=== PATIENT | male | born 1975 | race African-American/Black ===

== ENCOUNTER 2017-12-08 08:28 | Emergency (ER) | payer MEDICAID ==
[~2017-12-08] VITALS: Ht 185.4 cm; Wt 122.0 kg
[2017-12-08] MEDS ORDERED: CEFTRIAXONE SODIUM 1 G/VIAL IV ONE (09:30)
[2017-12-08] MEDS ORDERED: CEFTRIAXONE 1 G PREMIX 50 ML IV ONE (10:00)
[2017-12-08 10:06] LABS: BASOPHILS % 0.6 % (0.0-2.0); EOSINOPHILS % 3.2 % (0.0-5.0); HEMATOCRIT. 43.7 % (42.0-52.0); HEMOGLOBIN. 14.7 g/dL (14.0-18.0); LYMPHOCYTES % 31.3 % (20.0-50.0); MEAN CORPUSCULAR HEMOGLOBIN 27.7 pg (28.0-32.0); MEAN PLATELET VOLUME 8.5 fl (7.4-10.4); MONOCYTES % 8.2 % (2.0-8.0); NEUTROPHILS % 56.7 % (40.0-76.0); PLATELET 228 x1000/uL (130-400); RED BLOOD CELL COUNT 5.32 mill/uL (4.7-6.1); RED CELL DISTRIBUTION WIDTH 13.2 % (11.6-14.6)
[2017-12-08 10:32] LABS: CHLORIDE 110 mEq/L (98-107)
[2017-12-08 11:00] VITALS: BP 121/76
[2017-12-08] MEDS ORDERED: BACITRACIN ZINC OINT UDPKT TOP ONE (12:30)
== END 2017-12-08 12:47 | disposition home or self-care (01) ==
LOC: ER 09:54
DX: L02.416 Cutaneous abscess of left lower limb (principal); L03.116 Cellulitis of left lower limb; R60.0 Localized edema; R03.0 Elevated blood-pressure reading, without diagnosis of hypertension; Z72.0 Tobacco use
CPT/HCPCS: 36415; 80048; 85025; 87040; 87070; 87077; 87205; 93971; 96365; 99285; J0696

== ENCOUNTER 2020-05-31 16:35 | Emergency (ER) | payer MEDICAID ==
[~2020-05-31] VITALS: Ht 185.4 cm; Wt 127.0 kg
[2020-05-31 16:41] VITALS: BP 145/99
[2020-05-31] MEDS ORDERED: AMOX-424 MT (18:27)
== END 2020-05-31 18:58 | disposition home or self-care (01) ==
LOC: ER 16:35
DX: K11.20 Sialoadenitis, unspecified (principal); J45.909 Unspecified asthma, uncomplicated; F12.10 Cannabis abuse, uncomplicated; Z98.890 Other specified postprocedural states; Z79.899 Other long term (current) drug therapy
CPT/HCPCS: 81025; 99283

== ENCOUNTER 2021-01-12 21:27 | Emergency (ER) | payer MEDICAID ==
[~2021-01-12] VITALS: Ht 185.4 cm; Wt 125.0 kg
[~2021-01-12 21:27] MED LIST: AMOX-424 MT
[2021-01-12] MEDS ORDERED: VISCOUS LIDOCAINE 2% 15 ML UDC PO STA (23:15)
[2021-01-12] MEDS ORDERED: MAGNESIUM/ALUMINUM HYDROXIDE/SIMETHICONE 30ML UDC PO STA (23:15)
[2021-01-12] MEDS ORDERED: IBUPROFEN 600MG TABLET PO STA (23:15)
[2021-01-12 23:26] VITALS: BP 153/92
[2021-01-12 23:48] LABS: CHLORIDE 110 mEq/L (98-107)
[2021-01-12 23:51] LABS: BASOPHILS % 0.4 % (0.0-2.0); EOSINOPHILS % 3.5 % (0.0-5.0); HEMATOCRIT. 47.8 % (42.0-52.0); HEMOGLOBIN. 15.8 g/dL (14.0-18.0); LYMPHOCYTES % 36.7 % (20.0-50.0); MEAN PLATELET VOLUME 8.8 fl (7.4-10.4); MONOCYTES % 8.1 % (2.0-8.0); NEUTROPHILS % 51.3 % (40.0-76.0); PLATELET 198 x1000/uL (130-400); RED BLOOD CELL COUNT 5.83 mill/uL (4.7-6.1); RED CELL DISTRIBUTION WIDTH 13.8 % (11.6-14.6)
[2021-01-12 23:55] LABS: ETHANOL BLOOD < 10 mg/dL
== END 2021-01-13 01:13 | disposition home or self-care (01) ==
LOC: ER 21:27
DX: R07.89 Other chest pain (principal); R10.11 Right upper quadrant pain; K76.0 Fatty (change of) liver, not elsewhere classified; I45.10 Unspecified right bundle-branch block; R03.0 Elevated blood-pressure reading, without diagnosis of hypertension
CPT/HCPCS: 36415; 76700; 80053; 80320; 84484; 85025; 93005; 99285; G0480

== ENCOUNTER 2021-01-16 01:06 | Emergency (ER) | payer MEDICAID ==
[~2021-01-16] VITALS: Ht 185.4 cm; Wt 125.0 kg
[2021-01-16] MEDS ORDERED: HYDROCODONE/ACETAMINOPHEN 5/325MG TABLET PO STA (02:03)
[2021-01-16] MEDS ORDERED: MAGNESIUM/ALUMINUM HYDROXIDE/SIMETHICONE 30ML UDC PO STA (02:03)
[2021-01-16 02:59] VITALS: BP 150/100
[2021-01-16 03:35] LABS: BASOPHILS % 0.8 % (0.0-2.0); EOSINOPHILS % 3.7 % (0.0-5.0); HEMATOCRIT. 44.8 % (42.0-52.0); HEMOGLOBIN. 14.7 g/dL (14.0-18.0); LYMPHOCYTES % 32.8 % (20.0-50.0); MEAN CORPUSCULAR HEMOGLOBIN 26.8 pg (28.0-32.0); MEAN CORPUSCULAR VOLUME 81.8 fL (80.0-94.0); MEAN PLATELET VOLUME 8.7 fl (7.4-10.4); MONOCYTES % 7.5 % (2.0-8.0); NEUTROPHILS % 55.2 % (40.0-76.0); PLATELET 198 x1000/uL (130-400); RED BLOOD CELL COUNT 5.47 mill/uL (4.7-6.1); RED CELL DISTRIBUTION WIDTH 13.9 % (11.6-14.6)
[2021-01-16 03:57] LABS: CHLORIDE 108 mEq/L (98-107)
[2021-01-16 04:02] LABS: ETHANOL BLOOD < 10 mg/dL
[2021-01-16 04:33] LABS: *AMPHETAMINES SCREEN URINE NEGATIVE (NEGATIVE); *BARBITURATES SCREEN URINE NEGATIVE (NEGATIVE); *BENZODIAZEPINES SCREEN URINE NEGATIVE (NEGATIVE)
[2021-01-16 04:34] LABS: *COCAINE SCREEN URINE NEGATIVE (NEGATIVE); CANNABINOID URINE SCREEN PRESUMTIVE POSITIVE (NEGATIVE); METHADONE URINE SCREEN NEGATIVE (NEGATIVE); OPIATES URINE SCREEN NEGATIVE (NEGATIVE); PHENCYCLIDINE URINE SCREEN NEGATIVE (NEGATIVE)
== END 2021-01-16 05:44 | disposition home or self-care (01) ==
LOC: ER 01:06
DX: K76.0 Fatty (change of) liver, not elsewhere classified (principal); J45.909 Unspecified asthma, uncomplicated; F12.10 Cannabis abuse, uncomplicated; Z20.822 Contact with and (suspected) exposure to COVID-19
CPT/HCPCS: 36415; 76705; 80053; 80305; 80320; 85025; 87426; 93005; 99285; G0480

== ENCOUNTER 2021-02-03 15:22 | Emergency (ER) | payer MEDICAID ==
[~2021-02-03] VITALS: Ht 185.4 cm; Wt 137.0 kg
[2021-02-03 15:39] VITALS: BP 160/102
[2021-02-03] MEDS ORDERED: ALBU2.5V13 NEB (15:46)
[2021-02-03] MEDS ORDERED: P20 MT (15:46)
== END 2021-02-03 16:35 | disposition home or self-care (01) ==
LOC: ER 15:22
DX: J45.909 Unspecified asthma, uncomplicated (principal); Z20.822 Contact with and (suspected) exposure to COVID-19; K76.9 Liver disease, unspecified; F12.10 Cannabis abuse, uncomplicated; Z79.899 Other long term (current) drug therapy; Z98.890 Other specified postprocedural states
CPT/HCPCS: 99281

== ENCOUNTER 2021-02-12 23:34 | Emergency (ER) | payer MEDICAID ==
[~2021-02-12] VITALS: Ht 185.4 cm; Wt 137.0 kg
[~2021-02-12 23:34] MED LIST changes: +ALBU2.5V13 NEB; +P20 MT
[2021-02-13 00:18] VITALS: BP 128/89
== END 2021-02-13 05:52 | disposition left against medical advice (07) ==
LOC: ER 23:34
DX: R10.9 Unspecified abdominal pain (principal); Z53.21 Procedure and treatment not carried out due to patient leaving prior to being seen by health care provider
CPT/HCPCS: 93005; 99281

== ENCOUNTER 2021-03-30 02:03 | Emergency (ER) | payer MEDICAID | END 2021-03-30 02:59 | disposition left against medical advice (07) | LOC: ER 02:03 | DX: Z53.21 Procedure and treatment not carried out due to patient leaving prior to being seen by health care provider (principal) ==

== ENCOUNTER → 2022-09-28 | Emergency (ER) | payer MEDICAID | LOC: ER 03:11 | DX: Z53.21 Procedure and treatment not carried out due to patient leaving prior to being seen by health care provider (principal) | CPT/HCPCS: 99281 ==

== ENCOUNTER 2023-06-11 04:19 | Emergency (ER) | payer MEDICAID ==
[~2023-06-11] VITALS: Ht 185.4 cm; Wt 136.0 kg
[2023-06-11 04:27] VITALS: O2SAT 97
[2023-06-11] MEDS ORDERED: IBUP-2028 PO (05:58)
[2023-06-11] MEDS ORDERED: HYDR453.3 TP (05:58)
[2023-06-11] MEDS ORDERED: ACET-2708 PO (05:58)
[2023-06-11] MEDS: ACETAMINOPHEN 500MG TABLET PO ONE (06:04)
[2023-06-11] MEDS: KETOROLAC 60MG/2ML VIAL IM ONE (06:05)
[2023-06-11 06:13] VITALS: BP 149/80; PULSE 83; RESP 15; TEMP 98.2
== END 2023-06-11 06:23 | disposition home or self-care (01) ==
LOC: ER 04:19
DX: M54.9 Dorsalgia, unspecified (principal); J45.909 Unspecified asthma, uncomplicated; F12.10 Cannabis abuse, uncomplicated
CPT/HCPCS: 99283; 96372; J1885

== ENCOUNTER 2023-06-19 17:45 | Emergency (ER) | payer MEDICAID ==
[~2023-06-19] VITALS: Ht 185.4 cm; Wt 136.0 kg
[~2023-06-19 17:45] MED LIST changes: +ACET-2708 PO; +HYDR453.3 TP; +IBUP-2028 PO
[2023-06-19 17:58] VITALS: BP 117/56; PULSE 92; RESP 16; TEMP 98.8; O2SAT 99
[2023-06-19] MEDS: KETOROLAC 30MG/ML VIAL IM ONE (22:29)
== END 2023-06-19 22:31 | disposition home or self-care (01) ==
LOC: ER 17:54
DX: L03.011 Cellulitis of right finger (principal); F12.10 Cannabis abuse, uncomplicated; J45.909 Unspecified asthma, uncomplicated; Z98.890 Other specified postprocedural states
CPT/HCPCS: 99281; J1885